=== PATIENT | female | born 1995 | race Caucasian/White ===

== ENCOUNTER 2018-05-17 10:37 | Day surgery (SDC) | payer OTHER ==
[2018-05-17] MEDS ORDERED: LIDOCAINE 2% (SDV) 5 ML INJ (12:22)
[2018-05-17] MEDS ORDERED: PROPOFOL 20 ML (12:22)
[2018-05-17] MEDS ORDERED: MEPERIDINE /PF (100 MG/2 ML) AMPULE (12:23)
[2018-05-17] MEDS ORDERED: MEPERIDINE 25 MG INJ IV (12:30)
[2018-05-17] MEDS ORDERED: MIDAZOLAM 1 MG/ML 2 ML INJ IV (12:30)
[2018-05-17] MEDS ORDERED: DIPHENHYDRAMINE 50 MG INJ IV (12:30)
[2018-05-17] MEDS ORDERED: FENTAnyl 50 MCG/ML VIAL IV ×3 (12:30)
[2018-05-17] MEDS ORDERED: ONDANSETRON 4 MG INJ IV ×2 (12:30→14:00)
[2018-05-17] MEDS ORDERED: METOCLOPRAMIDE 10 MG INJ IV (12:30)
[2018-05-17] MEDS ORDERED: OXYCODONE/ACETAMINOPHEN (5/325) TAB PO ×3 (12:30→14:00)
[2018-05-17] MEDS ORDERED: METOCLOPRAMIDE 10 MG INJ (12:55)
[2018-05-17] MEDS ORDERED: ONDANSETRON 4 MG INJ (12:55)
[2018-05-17] MEDS ORDERED: CEFAZOLIN 1 GM INJ (13:21)
[2018-05-17] MEDS ORDERED: LACTATED RINGER'S 1,000 ML IV (13:35)
[2018-05-17] MEDS ORDERED: IBUPROFEN 600 MG TAB PO (14:00)
[2018-05-17] MEDS ORDERED: ACETAMINOPHEN 325 MG TAB PO (14:00)
[2018-05-17] MEDS ORDERED: morphine 2 MG INJ IV (14:00)
== END 2018-05-17 15:20 | disposition home or self-care (01) ==
LOC: SDS 10:37
DX: Z30.432 Encounter for removal of intrauterine contraceptive device (principal)
CPT/HCPCS: 58579; 71045; 84703; 86850; 86900; 86901; 88300